=== PATIENT | female | born 1955 | race Caucasian/White ===

== ENCOUNTER 2023-04-29 08:44 | Outpatient (AMB) | payer MEDICARE, OTHER, SELFPAY ==
--- NOTE | 2023-04-29 09:30 | AM.OFFWIN_ITS ---
Intake Vital Signs 04/29/23 09:34 Height 5 ft 1 in Weight 146 lb BMI 27.6 BP 118/60 Blood Pressure Location Lt brachial Position Sitting Pulse 82 Pulse Source Pulse Oximeter Temp 97.8 F Pulse Oximetry (%) 98 Oxygen Delivery Method Room Air Intake Visit Reasons: EP UTI Intake Note: pt is here today for UTI started 2 weeks ago Patient Tobacco Use Status: Never used Tobacco Allergies No Known Allergies Allergy (Verified 04/29/23 09:31) Do you need a note to return to daycare/school/sports/work: No HPI EP UTI HPI Details 67-year-old female patient [facility] for [facility] sick visit. Reports a 2 week history of feeling of urinary pressure. Denies painul or frequent urination. Denies fever or chills. Has had some tightness in her lower back but is not sure if this is muscle tightness due to working on her computer all day. [facility] Social History Patient Tobacco Use Status: Never used Tobacco Review of Systems Const All systems reviewed & are unremarkable except as noted in HPI and below Physical Exam Vital Signs: Last Vital Signs Temp 97.8 F 04/29/23 09:34 Pulse 82 04/29/23 09:34 BP 118/60 04/29/23 09:34 Pulse Ox 98 04/29/23 09:34 Oxygen Delivery Method Room Air 04/29/23 09:34 BMI result Body Mass Index 27.6 Const General: cooperative, healthy appearing and no acute distress Resp Effort & Inspection: normal respiratory effort and able to speak in complete sentences General: Yes bladder normal to palpation and Yes no CVA tenderness Bimanual exam- vagina & uterus: bladder normal to palpation Back/Spine/Pelvis Other: lumbar paraspinal muscle tenderness/tautness Back: no CVA tenderness Skin General skin exam: no rashes or lesions noted Extrem General: Yes capillary refill normal and Yes no clubbing, cyanosis or edema Psych Appearance: grossly normal Mental Status: mental status grossly normal Speech and movement: Normal speech and movement present Results AMB Urinalysis, Automated UA Leukoctes 15 Lm/uL Last Edit by David Ding CMA on 04/29/23 09:43 UA Nitrite Negative Last Edit by David Ding CMA on 04/29/23 09:43 UA Urobilinogen 0.2 mg/dL Last Edit by David Ding, TASH on 04/29/23 09 :43 UA Protein 0 mg/dL Last Edit by David Ding, TASH on 04/29/23 09:43 UA pH 6.0 Last Edit by David Ding, TASH on 04/29/23 09:43 UA Blood 0 Julius/uL Last Edit by David Ding, TASH on 04/29/23 09:43 UA Specific [place] 1.015 Last Edit by David Ding, TASH on 04/29/23 09:43 UA Ketone Negative Last Edit by David Ding CMA on 04/29/23 09:43 UA Bilirubin 0 mg/dL Last Edit by David Ding CMA on 04/29/23 09:43 UA Glucose 0 mg/dL Last Edit by David Ding CMA on 04/29/23 09:43 Results Reviewed Results Reviewed: Laboratory Last Values Urine pH (Auto) 6.0 04/29/23 09:40 Specific [place] (Auto) 1.015 04/29/23 09:40 Urine Protein (Auto) 0 mg/dL 04/29/23 09:40 Glucose (UA)(Auto) 0 mg/dL 04/29/23 09:40 Urine Ketones (Auto) Negative 04/29/23 09:40 Urine Blood (Auto) 0 Julius/uL 04/29/23 09:40 Urine Nitrite (Auto) Negative 04/29/23 09:40 Urine Bilirubin (Auto) 0 mg/dL 04/29/23 09:40 Urine Urobilinogen (Auto) 0.2 mg/dL 04/29/23 09:40 Leukocyte Esterase (Auto) 15 Lm/uL 04/29/23 09:40 Assessment & Plan Assessment & Plan (1) Cystitis: Code(s): N30.90 - Cystitis, unspecified without hematuria Plan: Macrobid 5 days for UTI. Urine dip with leuks, protein, blood. Reviewed indications, use, possible side effects of medication. Advised increased hydration. Will return to the clinic if she does not improve with treatment, or if symptoms worsen, or if symptoms such as lower back/flank pain, fever or chills develop. (2) Spasm of muscle of lower back: Code(s): M62.830 - Muscle spasm of back Plan: She does have some tautness of her muscles in her lower back. I will prescribe a short course of HS muscle relaxers. We reviewed indications, use, possible side effects of these. We discussed some gentle stretching, and heat application as needed for this. Orders: Orders AMB Urinalysis Automated Today Z13.9 - Encounter for screening, unspecified AMB Urinalysis Automated Today Z13.9 - Encounter for screening, unspecified Medications: New cyclobenzaprine 5 mg PO BEDTIME PRN 5 tabs 0RF muscle spasm 5 days M62.830 - Muscle spasm of back nitrofurantoin monohyd/m-cryst 100 mg (Macrobid) must administer with a meal/food 100 mg PO Q12H 5 days 10 caps 0RF N30.90 - Cystitis, unspecified without hematuria Coding Level of Care Code Est Pt Level 3 (17728) Diagnoses Cystitis N30.90 Spasm of muscle of lower back M62.830
[2023-04-29 09:34] VITALS: BP 118/60; PULSE 82; TEMP 36.6; O2SAT 98; BMI 27.6
== END 2023-04-29 09:59 | disposition home or self-care (01) ==
PROVIDERS: PCP Internal Medicine; Visit Provider Nurse Practitioner Family
DX: N30.90 Cystitis, unspecified without hematuria (principal); M62.830 Muscle spasm of back; R39.15 Urgency of urination
CPT/HCPCS: 81003; 99213

== ENCOUNTER 2023-05-28 10:40 | Outpatient (AMB) | payer MEDICARE, OTHER, SELFPAY ==
[2023-05-28 10:42] VITALS: BP 122/68; PULSE 110; O2SAT 98; BMI 27.7
--- NOTE | 2023-05-28 10:42 | AM.OFFWIN_ITS ---
Intake Vital Signs 05/28/23 10:42 Height 5 ft 1 in Weight 146 lb 6 oz BMI 27.7 BP 122/68 Blood Pressure Location Rt brachial Position Sitting Pulse 110 H Pulse Source Pulse Oximeter Pulse Oximetry (%) 98 Oxygen Delivery Method Room Air Intake Visit Reasons: EST/UTI(lobby) Patient Tobacco Use Status: Never used Tobacco Allergies No Known Allergies Allergy (Verified 05/28/23 10:43) Medication List - Last Reconciled 05/28/23 by Katiana Locke MD No Known Home Meds HPI EST/UTI(lobby) HPI Details Patient is 67-year-old female who had a urinary tract infection few days ago, she came to walk-in clinic and was treated with Macrobid for 5 days Patient felt better however her symptoms have started again. Patient says that when she gets the urinary tract infection she usually need at least 10 days of antibiotic Her symptoms are suprapubic discomfort frequency and slight back pain on the right side I have sent Macrobid for 10 days We will send urine for culture as well Review system: There is no nausea vomiting there is no fever chills PFSH Social History Patient Tobacco Use Status: Never used Tobacco Review of Systems Const All systems reviewed & are unremarkable except as noted in HPI and below Physical Exam Vital Signs: Last Vital Signs Pulse 110 H 05/28/23 10:42 BP 122/68 05/28/23 10:42 Pulse Ox 98 05/28/23 10:42 Oxygen Delivery Method Room Air 05/28/23 10:42 BMI result Body Mass Index 27.7 Const General: no acute distress Orientation/consciousness: patient oriented x3 Eyes General: appearance normal, both eyes and all related structures Resp Effort & Inspection: normal respiratory effort and able to speak in complete sentences Auscultation: clear to auscultation bilaterally Cardio Other: S1 S2 GI Other: Mild suprapubic discomfort with pressure General: Yes no CVA tenderness Back/Spine/Pelvis Back: no CVA tenderness Neuro General: patient oriented x3 Psych Mental Status: mental status grossly normal Results AMB Urinalysis, Automated UA Leukoctes 0 Lm/uL Last Edit by David Ding CMA on 05/28/23 10:48 UA Nitrite Negative Last Edit by David Ding CMA on 05/28/23 10:48 UA Urobilinogen 0.2 mg/dL Last Edit by David Ding CMA on 05/28/23 10 :48 UA Protein 0 mg/dL Last Edit by David Ding CMA on 05/28/23 10:48 UA pH 6.0 Last Edit by David Ding CMA on 05/28/23 10:48 UA Blood 25 Julius/uL Last Edit by David Ding CMA on 05/28/23 10:48 UA Specific [place] 1.015 Last Edit by David Ding CMA on 05/28/23 10:48 UA Ketone Negative Last Edit by David Ding CMA on 05/28/23 10:48 UA Bilirubin 0 mg/dL Last Edit by David Ding CMA on 05/28/23 10:48 UA Glucose 0 mg/dL Last Edit by David Ding CMA on 05/28/23 10:48 Results Reviewed Results Reviewed: Laboratory Last Values Urine pH (Auto) 6.0 05/28/23 10:47 Specific [place] (Auto) 1.015 05/28/23 10:47 Urine Protein (Auto) 0 mg/dL 05/28/23 10:47 Glucose (UA)(Auto) 0 mg/dL 05/28/23 10:47 Urine Ketones (Auto) Negative 05/28/23 10:47 Urine Blood (Auto) 25 Julius/uL 05/28/23 10:47 Urine Nitrite (Auto) Negative 05/28/23 10:47 Urine Bilirubin (Auto) 0 mg/dL 05/28/23 10:47 Urine Urobilinogen (Auto) 0.2 mg/dL 05/28/23 10:47 Leukocyte Esterase (Auto) 0 Lm/uL 05/28/23 10:47 Assessment & Plan Assessment & Plan (1) Acute cystitis: Code(s): N30.00 - Acute cystitis without hematuria Qualifiers: Hematuria presence: with hematuria Qualified Code(s): N30.01 - Acute cystitis with hematuria (2) Hematuria: Code(s): R31.9 - Hematuria, unspecified Qualifiers: Hematuria type: other microscopic Qualified Code(s): R31.29 - Other microscopic hematuria Plan Patient is 67-year-old female who had a urinary tract infection few days ago, she came to walk-in clinic and was treated with Macrobid for 5 days Patient felt better however her symptoms have started again. Patient says that when she gets the urinary tract infection she usually need at least 10 days of antibiotic Her symptoms are suprapubic discomfort frequency and slight back pain on the right side I have sent Macrobid for 10 days We will send urine for culture as well Review system: There is no nausea vomiting there is no fever chills Orders: Orders AMB Urinalysis Automated Today Z13.9 - Encounter for screening, unspecified Urine Culture Today R31.9 - Hematuria, unspecified Medications: Changed From nitrofurantoin monohyd/m-cryst 100 mg (Macrobid) must administer with a meal/food 100 mg PO Q12H 5 days 10 caps 0RF N30.90 - Cystitis, unspecified without hematuria To nitrofurantoin monohyd/m-cryst 100 mg (Macrobid) must administer with a meal/food 100 mg PO Q12H 10 days 20 caps 0RF N30.90 - Cystitis, unspecified without hematuria Coding Level of Care Code Est Pt Level 3 (05304) Diagnoses Acute cystitis with hematuria N30.01 Hematuria presence: with hematuria Other microscopic hematuria R31.29 Hematuria type: other microscopic
== END 2023-05-28 11:04 | disposition home or self-care (01) ==
PROVIDERS: PCP Internal Medicine; Visit Provider Internal Medicine
DX: N30.01 Acute cystitis with hematuria (principal)
CPT/HCPCS: 81003; 99213